=== PATIENT | male | born 1970 | race Caucasian/White ===

== ENCOUNTER 2021-08-29 06:55 | Emergency (ER) | payer BC ==
[2021-08-29] MEDS ORDERED: PROVENTIL HFA6.7 GM INH (11:00)
[2021-08-29] MEDS ORDERED: AZITHROMYCIN250 MG PO (11:00)
== END 2021-08-29 11:39 | disposition home or self-care (01) ==
LOC: ER1 06:55
DX: R05.9 Cough, unspecified (principal); R49.0 Dysphonia; Z20.822 Contact with and (suspected) exposure to COVID-19
CPT/HCPCS: 71046; 81001; 94664; 99283; U0002

== ENCOUNTER → 2021-09-03 | Outpatient (CLI) | payer BC ==
[~2021-09-03] MED LIST: AZITHROMYCIN250 MG PO; PROVENTIL HFA6.7 GM INH
== END ==
LOC: HEART 5 14:13
DX: R06.02 Shortness of breath (principal)
CPT/HCPCS: 94010